=== PATIENT | male | born 1990 | race Caucasian/White ===

== ENCOUNTER 2016-09-18 00:04 | Emergency (ER) | payer BC, MEDICARE, OTHER ==
[~2016-09-18 00:04] MED LIST: LEVO88TA2 PO; MISC-202; PENL8SOL TOPICAL; ZYRT10CA PO
[2016-09-18 00:06] VITALS: BP 132/78; PULSE 86; RESP 16; TEMP 98.1; O2SAT 99
--- NOTE | 2016-09-18 01:41 | PD ---
HPI Chief Complaint: Abdominal Pain Time Seen by Provider: 01:30 Travel History International Travel<30 days: No Contact w/Intl Traveler<30days: No Traveled to known affect area: No History of Present Illness HPI The patient is a 25 year old male who presents to the [facility] emergency department with a history of a burning sensation at the tip of the penis that began 2 days ago. It comes and goes. He also has some redness to the site. He denies any new partners. He uses condoms inconsistently.he reports that he is uncircumcised. He denies having any abdominal pain. He denies having any penile discharge, scrotal pain or swelling. He denies having any dysuria, hematuria, urinary urgency, or frequency. Otherwise on review of systems, the patient denies any recent fevers, cough, congestion, neck pain, chest pain, shortness of breath, vomiting, diarrhea, or neurologic symptoms. PFSH Past Medical History Narrative Medical The patient's past medical history is significant for hypothyroid. Autoimmune Disease: No Blood Disorders: No Cardiovascular Problems: No Genitourinary: No Musculoskeletal: No Neurologic: No Psychiatric: No Respiratory: No Past Surgical History Narrative Surgical The patient's past surgical history is reportedly none. Social History Alcohol Use: Yes (occasionally) Tobacco Use: No Substance Use: No Allergies-Medications (Allergen,Severity, Reaction): Coded Allergies: No Known Allergies (Verified , 07/18/16) Reported Meds & Prescriptions Reported Meds & Active Scripts Active Clotrimazole Topical (Clotrimazole) 1% Soln 1 Applic TOPICAL BID 14 Days Levothyroxine (Levothyroxine Sodium) 88 Mcg Tab 88 Mcg PO DAILY Thyroid labs need to be done verna Review of Systems General / Constitutional: No: Fever Eyes: No: Visual changes HENT: No: Headaches Cardiovascular: No: Chest Pain or Discomfort Respiratory: No: Shortness of Breath Gastrointestinal: No: Nausea, Vomiting, Diarrhea, Abdominal Pain Genitourinary: Positive: Other (penile pain to the touch), No: Urgency, Frequency, Dysuria, Discharge Musculoskeletal: No: Pain Skin: No Rash Neurologic: No: Weakness Psychiatric: No: Depression Endocrine: No: Polydipsia Hematologic/Lymphatic: No: Easy Bruising Physical Exam Narrative General: The patient is well-developed well-nourished male in no acute distress. Head and Neck exam: Head is normocephalic atraumatic. Eyes: EOMI, pupils are equal round and reactive to light. Nose: Midline septum with pink mucous membranes Mouth: Dentition unremarkable. Moist mucus membranes. Posterior oropharynx is not erythematous. No tonsillar hypertrophy. Uvula midline. Airway patent. Neck: No palpable lymphadenopathy. No nuchal rigidity. No thyromegaly. Cardiovascular: Regular rate and rhythm without murmurs, gallops, or rubs. Lungs: Clear to auscultation bilaterally. No wheezes, rhonchi, or rales. Abdomen: Soft, without tenderness to palpation in all 4 quadrants of the abdomen. No guarding, rebound, or rigidity. Normal bowel sounds are audible. No tenderness on palpation of McBurney's point. Negative Pinon sign. Extremities: No clubbing, cyanosis, or edema. 2+ pulses in all 4 extremities. Back: No costovertebral angle tenderness to palpation. Neurologic Exam: Grossly nonfocal. Skin Exam: No rash noted. Intact skin that is warm and dry. 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 No genital lesions or rash noted. The patient was however noted to have reported burning sensations along the dorsum of the glans of the penis when the foreskin was retracted. There are no visible lesions or erythema. No scrotal pain or swelling on examination. No palpable testicle masses or tenderness on palpation. No palpable hernia. Data Data Last Documented VS Vital Signs Date Time Temp Pulse Resp B/P Pulse Ox O2 Delivery O2 Flow Rate FiO2 09/18/16 03:35 68 18 128/71 98 Room Air 09/18/16 00:06 98.1 Orders Chest, Single Ap (09/18/16 01:55) Urinalysis - C+S If Indicated (09/18/16 04:31) Labs Laboratory Tests Test 09/18/16 04:13 Urine Color YELLOW Urine Turbidity CLEAR Urine pH 6.0 Urine Specific [place] 1.035 Urine Protein TRACE mg/dL Urine Glucose (UA) NEG mg/dL Urine Ketones NEG mg/dL Urine Occult Blood NEG Urine Nitrite NEG Urine Bilirubin NEG Urine Urobilinogen 2.0 MG/DL Urine Leukocyte Esterase NEG Urine RBC LESS THAN 1 /hpf Urine WBC 1 /hpf Urine Squamous Epithelial 1 /hpf Cells Urine Renal Epithelial Cells <1 /hpf Urine Mucus FEW /lpf Microscopic Urinalysis Comment CULT NOT INDICATED MDM Medical Decision Making Medical Screen Exam Complete: Yes Emergency Medical Condition: Yes Differential Diagnosis Balanitis, versus urinary tract infection, versus herpes, versus bacterial skin infection Narrative Course During the course of the patients emergency department visit, the patients history, examination, and differential diagnosis were reviewed with the patient. The patient had a urine sent for analysis The patients laboratory studies were reviewed and remarkable for a urinalysis that is within normal limits. The patient's results were discussed with him. The patient's symptoms are most consistent with a yeast balanitis. Patient will be discharged home with a prescription for clotrimazole topically. The patient is resting comfortably and feels better, is alert and in no distress. The patients results and examination findings were discussed with the patient. The repeat examination is unremarkable and benign. The history, exam, diagnostic testing, and current condition do not suggest any significant pathology to warrant further testing, continued ED treatment, admission, or surgical evaluation at this point. The vital signs have been stable. The patient does not have uncontrollable pain, intractable vomiting, or other significant symptoms. The patient's condition is stable and appropriate for discharge. The patient will pursue further outpatient evaluation with a primary care physician or other designated or consulting physician as indicated in the discharge instructions. The patient expressed understanding and was agreeable with this plan. Diagnosis Primary Impression: Candidal balanitis Referrals: [facility] Dept. 3 days Patient Instructions: Balanitis (ED), General Instructions Med/Other Pt SpecificInfo: Prescription(s) given Scripts Clotrimazole Topical 1% Soln1 Applic TOPICAL BID 14 Days Ref 0 Prov:Alicia Kruger MD 09/18/16 Disposition: 01 DISCHARGE HOME Condition: Stable Alicia Kruger MD Sep 18, 2016 01:41
--- NOTE | 2016-09-18 02:35 | RADRPT ---
EXAM DATE/TIME: 09/18/2016 01:51 [facility] COMPARISON: No previous studies available for comparison. INDICATIONS : Chest pain. MEDICAL HISTORY : None. SURGICAL HISTORY : None. ENCOUNTER: Initial ACUITY: 1 day PAIN SCORE: 4/10 LOCATION: Bilateral chest FINDINGS: A single view of the chest demonstrates the lungs to be symmetrically aerated without evidence of mas s, infiltrate or effusion. The cardiomediastinal contours are unremarkable. Osseous structures are intact. CONCLUSION: No acute disease. Maikel Isaac MD on September 18, 2016 at 2:33 Board Certified Radiologist. This report was verified electronically.
[2016-09-18 03:35] VITALS: BP 128/71; PULSE 68; RESP 18; O2SAT 98
[2016-09-18 04:55] LABS: BLOOD, URINE NEG (NEG); COMMENT (UR) CULT NOT INDICATED; CULTURE IF INDICATED CULT NOT INDICATED; GLUCOSE,URINE NEG (NEG); KETONE, URINE NEG (NEG); MUCUS URINE FEW /lpf (OCC); NITRITE,URINE NEG (NEG); RENAL EPITHELIAL CELLS <1 /hpf; SQUAMOUS EPITHELIAL CELL URINE 1 /hpf (0-5); URINE COLOR YELLOW (YELLW/STRAW)
[2016-09-18] MEDS ORDERED: CLOTR1%T TOPICAL (05:03)
== END 2016-09-18 05:51 | disposition home or self-care (01) ==
LOC: NEPE 00:04
DX: B37.42 Candidal balanitis (principal)
CPT/HCPCS: 71010; 81001; 99284